=== PATIENT | female | born 1935 ===

== ENCOUNTER 2021-11-27 05:28 | Day surgery (SDC) | payer MEDICARE, OTHER ==
[~2021-11-27 05:28] MED LIST: Sodium Chloride 0.9% 10 ML Syringe FLUSH SCH
[2021-11-27] MEDS ORDERED: fentaNYL 100 MCG/2 ML SDV IV ONE (05:29)
[2021-11-27] MEDS ORDERED: Midazolam 1 MG/ML 2 ML SDV IV ONE (05:29)
[2021-11-27] MEDS ORDERED: fentaNYL 100 MCG/2 ML SDV ONE (05:41)
[2021-11-27] MEDS ORDERED: Midazolam 1 MG/ML 2 ML SDV ONE (05:41)
[2021-11-27] MEDS: Dextrose 5%-0.45% NaCl 1,000 ML IV SCH (05:57)
[2021-11-27] MEDS ORDERED: Sodium Chloride 0.9% 10 ML Syringe FLUSH PRN (06:00)
[2021-11-27] MEDS: fentaNYL 100 MCG/2 ML SDV IV ONE ×3 (06:37→06:43)
[2021-11-27] MEDS: Midazolam 1 MG/ML 2 ML SDV IV ONE ×5 (06:38→06:47)
[2021-11-27 09:09] VITALS: PULSE 66
[2021-11-27 09:10] VITALS: BP 153/62
== END 2021-11-27 09:05 | disposition home or self-care (01) ==
LOC: DL.ENDO 05:28
PROVIDERS: ATTEND Internal Medicine Gastroenterology
DX: K51.40 Inflammatory polyps of colon without complications (principal); K57.30 Diverticulosis of large intestine without perforation or abscess without bleeding; I25.10 Atherosclerotic heart disease of native coronary artery without angina pectoris; E11.9 Type 2 diabetes mellitus without complications; D69.6 Thrombocytopenia, unspecified; E78.5 Hyperlipidemia, unspecified; Z90.49 Acquired absence of other specified parts of digestive tract; Z98.890 Other specified postprocedural states; Z01.812 Encounter for preprocedural laboratory examination; Z20.822 Contact with and (suspected) exposure to COVID-19
CPT/HCPCS: 45385; J2250; J3010; J7042; U0002; 88305

== ENCOUNTER 2023-02-20 10:18 | Emergency (ER) | payer MEDICARE, OTHER ==
[2023-02-20 11:09] LABS: HEMATOCRIT 41.9 % (37.0-47.0); HEMOGLOBIN 13.7 g/dL (12.0-16.0); MEAN CORPUSCULAR HEMOGLOBIN 27.2 pg (27.0-34.0); MEAN CORPUSCULAR HGB CONC 32.7 g/dL (33.0-35.0); MEAN CORPUSCULAR VOLUME 83.1 fL (80-100); PLATELET COUNT,PLT 98 10^3/uL (150-450); RED BLOOD CELL COUNT 5.04 10^6/uL (4.2-5.4); WHITE BLOOD CELL COUNT,WBC 5.3 10^3/uL (5.0-10.0)
[2023-02-20 11:14] LABS: NEUTROPHILS PERCENT AUTO 20.9 % (42.2-75.2)
[2023-02-20 11:15] LABS: BASOPHILS PERCENT AUTO 7.5 % (0.0-1.0); EOSINOPHILS PERCENT AUTO 0.4 % (1.0-3.0); MONOCYTES PERCENT AUTO 47.2 % (2-8)
[2023-02-20 11:25] LABS: B-TYPE NATRIURETIC PEPTIDE,BNP 22 pg/ml (0-100)
[2023-02-20 11:32] LABS: A/G RATIO 1.6; ALANINE AMINOTRANSFERASE,ALT 23 U/L (14-59); ALBUMIN 4.1 g/dL (3.4-5.0); ALKALINE PHOSPHATASE 68 U/L (46-116); ANION GAP 13.1 mEq/L (7-13); ASPARTATE AMNIOTRANSFERASE,AST 17 U/L (15-37); BILIRUBIN TOTAL 0.8 mg/dL (0.2-1.0); BLOOD UREA NITROGEN,BUN 24 mg/dL (7-18); BUN/CREATININE RATIO 28.6 (No establ ref range); CALCIUM 8.5 mg/dL (8.5-10.1); CARBON DIOXIDE,CO2 28 mmol/L (21-32); CHLORIDE,CL 106 mmol/L (98-107); CREATININE 0.84 mg/dL (0.55-1.02); EST CRCL DRUG DOSING (CG) 37.17 mL/min; GLUCOSE RANDOM 101 mg/dL (70-99); POTASSIUM,K 4.1 mmol/L (3.5-5.1); PROTEIN TOTAL,TP 6.7 g/dL (6.4-8.2); SODIUM,NA 143 mmol/L (136-145)
[2023-02-20 11:34] LABS: PROTHROMBIN TIME 10.1 SEC (9.0-12.0); PTT,PARTIAL THROMBOPLSTIN TIME 25.4 SEC (22.0-34.0)
[2023-02-20 11:39] LABS: LYMPHOCYTES PERCENT MAN 17 % (20-50); METAMYELOCYTE PERCENT MAN 3; MONOCYTES PERCENT MAN 38 % (2-8); SEG NEUTROPHILS PERCENT MAN 42 % (42-75)
[2023-02-20 11:44] LABS: C-REACTIVE PROTEIN < 0.2 mg/dL (0.0-0.9); ESTIMATED GFR 68 mL/min (>=60)
[2023-02-20 14:50] VITALS: BP 147/83; PULSE 71
== END 2023-02-20 14:53 ==
LOC: DL.ED 10:18
DX: J94.8 Other specified pleural conditions (principal); R06.03 Acute respiratory distress; J90 Pleural effusion, not elsewhere classified
CPT/HCPCS: 36415; 71250; 80053; 83880; 84484; 85025; 85610; 85730; 86140; 99285

== ENCOUNTER 2023-10-20 07:32 | Emergency (ER) | payer MEDICARE, OTHER ==
[2023-10-20 07:52] LABS: HEMATOCRIT 40.1 % (37.0-47.0); HEMOGLOBIN 13.1 g/dL (12.0-16.0); MEAN CORPUSCULAR HEMOGLOBIN 27.4 pg (27.0-34.0); MEAN CORPUSCULAR HGB CONC 32.7 g/dL (33.0-35.0); MEAN CORPUSCULAR VOLUME 83.9 fL (80-100); PLATELET COUNT,PLT 77 10^3/uL (150-450); RED BLOOD CELL COUNT 4.78 10^6/uL (4.2-5.4); WHITE BLOOD CELL COUNT,WBC 7.6 10^3/uL (5.0-10.0)
[2023-10-20] MEDS ORDERED: Sodium Chloride 0.9% 1,000 ML IV SCH (08:00)
[2023-10-20 08:15] LABS: ALBUMIN 3.3 g/dL (3.4-5.0); ANION GAP 12.9 mEq/L (7-13); BILIRUBIN TOTAL 0.7 mg/dL (0.2-1.0); BUN/CREATININE RATIO 17.6 (No establ ref range); CALCIUM 8.2 mg/dL (8.5-10.1); CREATININE 0.68 mg/dL (0.55-1.02); EST CRCL DRUG DOSING (CG) 43.63 mL/min; POTASSIUM,K 2.9 mmol/L (3.5-5.1); PROTEIN TOTAL,TP 6.3 g/dL (6.4-8.2)
[2023-10-20] MEDS ORDERED: Bacitracin Oint 1 GM U/D Packet TOP ONE (08:18)
[2023-10-20 08:24] LABS: A/G RATIO 1.1
[2023-10-20] MEDS ORDERED: fentaNYL 100 MCG/2 ML SDV IVPUSH ONE (08:27)
[2023-10-20] MEDS ORDERED: Potassium Chloride 10 MEQ Tab.ER PO ONE (08:28)
[2023-10-20] MEDS ORDERED: NS with KCl 40mEq 1,000 ML IV SCH (08:30)
[2023-10-20 09:07] LABS: BAND PERCENT MAN 2 %; LYMPHOCYTES PERCENT MAN 14 % (20-50); MONOCYTES PERCENT MAN 24 % (2-8); SEG NEUTROPHILS PERCENT MAN 60 % (42-75)
[2023-10-20] MEDS ORDERED: Acetaminophen/oxyCODONE 325-5 MG Tab PO ONE (09:35)
[2023-10-20 09:39] LABS: APPEARANCE,URINE CLEAR (CLEAR); BILIRUBIN,URINE NEGATIVE (NEGATIVE); COLOR,URINE YELLOW (YELLOW); GLUCOSE,URINE NEGATIVE (NEGATIVE); KETONES,URINE 40 (NEGATIVE); LEUKOCYTE ESTERASE,URINE SMALL (NEGATIVE); NITRITE,URINE NEGATIVE (NEGATIVE); OCCULT BLOOD,URINE SMALL (NEGATIVE); PROTEIN,URINE NEGATIVE (NEGATIVE); UROBILINOGEN,URINE 0.2 mg/dL (0.2-1.0)
[2023-10-20 10:05] LABS: BACTERIA,URINE FEW /HPF (0-FEW/HPF); EPITHELIAL CELLS,URINE FEW /HPF (NOT SEEN)
[2023-10-20 10:27] VITALS: BP 134/70; PULSE 86
== END 2023-10-20 10:24 | disposition home or self-care (01) ==
LOC: DL.ED 07:32
DX: S70.01XA Contusion of right hip, initial encounter (principal); M62.3 Immobility syndrome (paraplegic); Z99.3 Dependence on wheelchair; E87.6 Hypokalemia; W19.XXXA Unspecified fall, initial encounter; Y92.009 Unspecified place in unspecified non-institutional (private) residence as the place of occurrence of the external cause
CPT/HCPCS: 36415; 80053; 81001; 82550; 85025; 87086; 87088; 87186; 96365; 96366; 96375; 99284; 99284-25; A9270-GY; J3010; J3480; J7030

== ENCOUNTER 2023-10-22 14:03 | Emergency (ER) | payer MEDICARE, OTHER ==
[2023-10-22] MEDS ORDERED: Acetaminophen/oxyCODONE 325-5 MG Tab PO ONE ×2 (14:48→19:10)
[2023-10-22 17:11] LABS: ANION GAP 13.4 mEq/L (7-13); BLOOD UREA NITROGEN,BUN 14 mg/dL (7-18); CALCIUM 8.2 mg/dL (8.5-10.1); CARBON DIOXIDE,CO2 25 mmol/L (21-32); CHLORIDE,CL 102 mmol/L (98-107); CREATININE 0.63 mg/dL (0.55-1.02); GLUCOSE RANDOM 115 mg/dL (70-99); POTASSIUM,K 4.4 mmol/L (3.5-5.1); SODIUM,NA 136 mmol/L (136-145)
[2023-10-22 17:14] LABS: ESTIMATED GFR 86 mL/min (>=60)
[2023-10-22 19:19] VITALS: BP 126/61; PULSE 83
== END 2023-10-22 19:48 | disposition critical access hospital (66) ==
LOC: DL.ED 14:03
DX: S70.01XD Contusion of right hip, subsequent encounter (principal); R53.1 Weakness; J90 Pleural effusion, not elsewhere classified; R26.9 Unspecified abnormalities of gait and mobility; Z79.899 Other long term (current) drug therapy; W18.30XD Fall on same level, unspecified, subsequent encounter
CPT/HCPCS: 36415; 72170; 80048; 99284; A9270-GY